=== PATIENT | male | born 1965 | race Caucasian/White ===

== ENCOUNTER 2022-02-12 13:40 | Emergency (ER) | payer SELFPAY ==
[2022-02-12] MEDS ORDERED: Morphine 4 MG/ML VIAL ONE (14:20)
[2022-02-12] MEDS ORDERED: Ketorolac Tromethamine 30 MG/ML VIAL ONE (14:21)
== END 2022-02-12 15:57 | disposition home or self-care (01) ==
LOC: ERS 13:40
DX: S92.062A Displaced intraarticular fracture of left calcaneus, initial encounter for closed fracture (principal); M54.9 Dorsalgia, unspecified; G89.29 Other chronic pain; I10 Essential (primary) hypertension; W11.XXXA Fall on and from ladder, initial encounter; Z79.899 Other long term (current) drug therapy
CPT/HCPCS: 96374; 96375; J1885; J2270